=== PATIENT | male | born 1975 | race Caucasian/White ===

== ENCOUNTER 2018-04-26 07:35 | Emergency (ER) | payer MEDICAID, OTHER ==
[~2018-04-26] VITALS: Ht 172.7 cm; Wt 95.3 kg
[~2018-04-26 07:35] MED LIST: IBUP-1842; LISI-420 PO; ORE25 PO; UNK HTN MED
--- NOTE | 2018-04-26 07:37 | NUR ---
PT AMBULATES TO BED 10
--- NOTE | 2018-04-26 07:39 | NUR ---
PATIENT PRESENTS TO ED WITH DIZZINESS, UNABLE TO AMBULATE RIGHT SIDED NUMBNESS RIGHT SIDED FACIAL ASYMMETRY DYSARTHRIA . DENIES INJURY/TRAUMA---NUMBNESS STARTED LAST NIGHT AND TODAY AT 2AM WITH FACIAL ASYMMETRY AND UNABLE TO COMMUNICATE] . DENIES N/V/D; SKIN IS PINK/WARM/DRY; AAOX4 UNABLE TO AMBULATE; LUNGS CLEAR BL; HR EVEN AND SLIGHTLY TACHYCARDIA; PT DENIES ANY FEVER, CP, SOB, OR COUGH AT THIS TIME; PATIENT STATES PAIN OF 0/10 AT THIS TIME; VSS; PATIENT POSITIONED FOR COMFORT; HOB ELEVATED; BEDRAILS UP X2; BED DOWN. ER MD MADE AWARE OF PT STATUS.
--- NOTE | 2018-04-26 07:39 | NUR ---
AT BEDSIDE--CODE BRAIN INITIATED
--- NOTE | 2018-04-26 07:42 | NUR ---
code brain initiated.
[2018-04-26 07:43] VITALS: BP 240/150
--- NOTE | 2018-04-26 07:44 | NUR ---
patient to ct. scan mpnitored with nurse code brain. o2 2lnc
--- NOTE | 2018-04-26 07:44 | NUR ---
PT TAKEN TO CT IN [place]
[2018-04-26] MEDS ORDERED: LABETALOL 100 MG/20 ML VIAL IVP ONE (07:50)
--- NOTE | 2018-04-26 07:54 | NUR ---
PT RETURNED FROM CT
--- NOTE | 2018-04-26 08:04 | NUR ---
XRAY AT BEDSIDE
[2018-04-26 08:10] LABS: BASOPHILS # (AUTO) 0.1 K/uL (0.00-0.22); BASOPHILS % (AUTO) 0.8 % (0.0-2.0); EOSINOPHILS # (AUTO) 0.1 K/uL (0-0.4); EOSINOPHILS % (AUTO) 1.6 % (0.0-4.0); HEMATOCRIT 47.3 % (36-52); HEMOGLOBIN 15.8 g/dL (12.0-18.0); LYMPHOCYTES # (AUTO) 1.8 K/uL (2.0-11.5); LYMPHOCYTES % (AUTO) 22.2 % (20.5-51.1); MEAN CORPUSCULAR HEMOGLOBIN 28 pg (27-31); MEAN CORPUSCULAR HGB CONC 34 g/dL (33-37); MONOCYTES # (AUTO) 0.6 K/uL (0.8-1.0); MONOCYTES % (AUTO) 6.7 % (1.7-9.3); NEUTROPHILS # (AUTO) 5.7 K/uL (1.8-7.7); NEUTROPHILS % (AUTO) 68.7 % (42.2-75.2); PLATELET COUNT (AUTO) 226 K/uL (140-450); RED BLOOD CELL COUNT(AUTO) 5.63 MIL/uL (4.20-6.10); RED CELL DISTRIBUTION WIDTH 14.6 % (11.6-13.7); WHITE BLOOD COUNT (AUTO) 8.3 K/uL (4.8-10.8)
[2018-04-26 08:17] LABS: PROTHROMBIN TIME 10.5 secs (10.8-13.4)
[2018-04-26 08:20] LABS: ANION GAP 11.8 (8-16); TOTAL BILIRUBIN 0.4 mg/dL (0.0-1.0)
[2018-04-26 08:23] LABS: POTASSIUM 2.8 mmol/L (3.5-5.1)
--- NOTE | 2018-04-26 09:12 | NUR ---
PT REPORT GIVEN TO WOODEN BARREL MECHANICROBLES JOHN AT [place], WILL CALL BACK FOR ETA
[2018-04-26] MEDS ORDERED: POTASSIUM CHL IV ONE (09:31)
[2018-04-26] MEDS ORDERED: 1/2 NS IV ONE (09:31)
[2018-04-26] MEDS: POTASSIUM CHLORIDE 10 MEQ in NACL 0.9% 100 ML IV SCH ×2 (09:39→09:40)
--- NOTE | 2018-04-26 09:44 | NUR ---
AAO PT WITH AT BEDSIDE ANSWER ALL QUESTION APROPIATELY AT THIS TIME, NO C/O HEADACHE, NAUSEA, DIZZINESS, OR PAIN AT THIS TIME, 10 MEQ POTASIUM GIVEN VIA IV, BP 195/131, HR 79, RR 20, SPO2 97% ON 2LPM VIA N/CA, AWAITING FOR [facility] FOR TRANSFER [place] [facility] [place], TRANSFER FORM SIGNED BY THE PT ON NON-DOMINANT LT HAND WITH RT SIDED WEAKNESS AND RT FACIAL DROOP, WILL CONTINUE TO MONITOR
--- NOTE | 2018-04-26 10:24 | NUR ---
[facility] TRANSPORT ARRIVES FOR PT TO [facility]
[2018-04-26 10:28] LABS: BARBITURATE, URINE NEG. ng/ml (NEG <=200); BENZODIAZEPINE, URINE NEG. ng/mL (NEG <=200); CANNABINOID, URINE NEG. ng/mL (NEG <=50); COCAINE, URINE NEG. ng/mL (NEG <=300); OPIATE, URINE NEG. ng/mL (NEG <=2000); PHENCYCLIDINE SCREEN,URINE NEG. ng/mL (NEG <=25)
[2018-04-26 10:29] LABS: APPEARANCE,URINE CLEAR (CLEAR); BILIRUBIN,URINE NEGATIVE (NEGATIVE); BLOOD, URINE NEGATIVE (NEGATIVE); COLOR,URINE YELLOW (YELLOW); LEUKOCYTE ESTERASE ,URINE NEGATIVE (NEGATIVE); NITRITE, URINE NEGATIVE (NEGATIVE); UGLUCOSE NEGATIVE (NEGATIVE)
--- NOTE | 2018-04-26 10:34 | NUR ---
PT LEAVING WITH [facility] TO [facility]
[2018-04-26 10:36] VITALS: BP 178/116
--- NOTE | 2018-04-26 10:36 | NUR ---
Patient to be transferred to [facility]. Is being transferred due to need of higher level of care. Receiving facility has accepting physician and available space. ER physician has signed transfer form. Patient or responsible libertarian has agreed to transfer and signed form. Patient belongings inventoried and will be sent with patient. Copy of nursing notes, lab reports, EKG, Physicians Orders and X-rays to be sent with patient. Report called to ROBLES Rios at receiving facility. [facility] ambulance service tranported the pt via gurney. ETA is 15 min to recieving facility. ROBLES Rios notified at recieving facility. Report given to paramedics Ayaan.
[2018-04-26 10:47] LABS: RBC,URINE NONE SEEN /HPF (0-5); WBC,URINE NONE SEEN /HPF (0-5)
== END 2018-04-26 10:36 | disposition short-term general hospital (02) ==
LOC: MED 07:35
DX: I63.8 Other cerebral infarction (principal); I10 Essential (primary) hypertension; Z79.899 Other long term (current) drug therapy
CPT/HCPCS: 36415; 70450; 71045; 80053; 80305; 81001; 82948; 83036; 83735; 84484; 85025; 85610; 85730; 86886; 86900; 86901; 93005; 96361; 96374; 99291; J3480; J3490; J7030; Q0092

== ENCOUNTER 2021-04-16 10:55 | Emergency (ER) | payer MEDICAID, OTHER ==
[~2021-04-16] VITALS: Ht 170.2 cm; Wt 83.5 kg
[~2021-04-16 10:55] MED LIST changes: -LISI-420 PO; +LISI-487 PO
[2021-04-16 10:58] VITALS: BP 206/122
--- NOTE | 2021-04-16 11:05 | NUR ---
PT AMBULATED TO BED 11
[2021-04-16] MEDS ORDERED: ENALAPRILAT 2.5 MG/2 ML VIAL IVP ONE (11:15)
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
[2021-04-16 11:42] LABS: BASOPHILS # (AUTO) 0.1 K/uL (0.00-0.22); BASOPHILS % (AUTO) 0.9 % (0.0-2.0); EOSINOPHILS # (AUTO) 0.2 K/uL (0-0.4); EOSINOPHILS % (AUTO) 2.3 % (0.0-4.0); HEMATOCRIT 43.8 % (36-52); HEMOGLOBIN 14.8 g/dL (12.0-18.0); LYMPHOCYTES # (AUTO) 1.9 K/uL (2.0-11.5); LYMPHOCYTES % (AUTO) 22.9 % (20.5-51.1); MEAN CORPUSCULAR HEMOGLOBIN 29 pg (27-31); MEAN CORPUSCULAR HGB CONC 34 g/dL (33-37); MEAN CORPUSCULAR VOLUME 85.7 fL (80-94); MONOCYTES # (AUTO) 0.7 K/uL (0.8-1.0); MONOCYTES % (AUTO) 8.4 % (1.7-9.3); NEUTROPHILS # (AUTO) 5.6 K/uL (1.8-7.7); NEUTROPHILS % (AUTO) 65.5 % (42.2-75.2); PLATELET COUNT (AUTO) 230 K/uL (140-450); RED BLOOD CELL COUNT(AUTO) 5.12 MIL/uL (4.20-6.10); RED CELL DISTRIBUTION WIDTH 13.9 % (11.6-13.7); WHITE BLOOD COUNT (AUTO) 8.5 K/uL (4.8-10.8)
[2021-04-16 11:56] LABS: ALBUMIN 3.8 g/dL (3.4-5.0); ANION GAP 8.7 (8-16); CARBON DIOXIDE 28.2 mmol/L (21-32); TOTAL BILIRUBIN 0.3 mg/dL (0.0-1.0)
[2021-04-16 12:01] LABS: POTASSIUM 2.9 mmol/L (3.5-5.1)
[2021-04-16] MEDS ORDERED: POTASSIUM CHLORIDE 10 MEQ TABER PO ONE (12:05)
--- NOTE | 2021-04-16 12:30 | NUR ---
PT ALERT AND AWAKE, BREATHING EVEN AND UNLABORED. NO DISTRESS NOTED. ALL NEEDS MET AT THIS TIME
--- NOTE | 2021-04-16 12:48 | NUR ---
Dr. Burton is evaluating the patient at bedside.
[2021-04-16 13:20] VITALS: BP 183/115
--- NOTE | 2021-04-16 13:21 | NUR ---
Patient discharged with v/s stable. Written and verbal after care instructions about hypokalemia, hypertension given and explained. Patient verbalized understanding. Ambulatory with steady gait. All questions addressed prior to discharge. Advised to follow up with PMD.
== END 2021-04-16 13:21 | disposition home or self-care (01) ==
LOC: MED 10:55
DX: I10 Essential (primary) hypertension (principal); Z86.73 Personal history of transient ischemic attack (TIA), and cerebral infarction without residual deficits; Z79.899 Other long term (current) drug therapy; Z98.890 Other specified postprocedural states
CPT/HCPCS: 36415; 71045; 80053; 84484; 85025; 93005; 96374; 99285; J3490

== ENCOUNTER 2021-05-18 08:10 | Emergency (ER) | payer OTHER ==
[~2021-05-18] VITALS: Ht 170.2 cm; Wt 87.5 kg
[2021-05-18 08:28] VITALS: BP 179/113
--- NOTE | 2021-05-18 08:33 | NUR ---
PT AMBULATED WITH EVEN AND STEADY GAIT TO BED 6
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
[2021-05-18 09:45] VITALS: BP 179/113
--- NOTE | 2021-05-18 09:46 | NUR ---
Patient discharged with v/s stable. Written and verbal after care instructions about carpal tunnel syndrome given and explained. Patient verbalized understanding. Ambulatory with steady gait. All questions addressed prior to discharge. Advised to follow up with PMD.
== END 2021-05-18 09:46 | disposition home or self-care (01) ==
LOC: MED 08:10
DX: R20.0 Anesthesia of skin (principal); G56.02 Carpal tunnel syndrome, left upper limb
CPT/HCPCS: 99281

== ENCOUNTER 2022-05-06 14:43 | Emergency (ER) | payer OTHER ==
[~2022-05-06] VITALS: Ht 170.2 cm; Wt 81.6 kg
[2022-05-06 14:56] VITALS: BP 151/92
[2022-05-06] MEDS ORDERED: LID5T TP (18:41)
[2022-05-06] MEDS ORDERED: ACET-8386 PO (18:41)
[2022-05-06] MEDS ORDERED: IBUP-2213 PO (18:41)
[2022-05-06] MEDS ORDERED: HYDROcodone/APAP 5/325 MG 1 TAB TAB ONE (18:47)
[2022-05-06] MEDS ORDERED: KETOROLAC 30 MG/ML VIAL ONE (18:47)
[2022-05-06] MEDS: HYDROcodone/APAP 5/325 MG 1 TAB TAB PO ONE (18:52)
[2022-05-06] MEDS: KETOROLAC 30 MG/ML VIAL IM ONE (18:52)
--- NOTE | 2022-05-06 19:04 | NUR ---
Patient discharged with v/s stable. Written and verbal after care instructions given and explained. Patient alert, oriented and verbalized understanding of instructions. Wheel Chair Assisted with to car. All questions addressed prior to discharge. ID band removed. Patient advised to follow up with PMD. Rx of IBUPROFEN, NORCO 5/325, LIDODERM PATCH given. Patient educated on indication of medication including possible reaction and side effects. Opportunity to ask questions provided and answered.
== END 2022-05-06 18:57 | disposition home or self-care (01) ==
LOC: MED 14:43
DX: S39.012A Strain of muscle, fascia and tendon of lower back, initial encounter (principal); I10 Essential (primary) hypertension; Z86.73 Personal history of transient ischemic attack (TIA), and cerebral infarction without residual deficits; Z79.899 Other long term (current) drug therapy; X58.XXXA Exposure to other specified factors, initial encounter; Y93.89 Activity, other specified; Y92.89 Other specified places as the place of occurrence of the external cause; Y99.8 Other external cause status
CPT/HCPCS: 72100; 81002; 96372; 99283; J1885

== ENCOUNTER 2023-09-16 12:16 | Emergency (ER) | payer MEDICAID, OTHER ==
[~2023-09-16] VITALS: Ht 170.2 cm; Wt 83.5 kg
[~2023-09-16 12:16] MED LIST changes: +ACET-8905 PO; +IBUP-2213 PO; +LID5T TP
[2023-09-16 13:11] VITALS: BP 151/97; PULSE 84; RESP 20; TEMP 98.7; O2SAT 98
[2023-09-16 14:28] LABS: BASOPHILS % (AUTO) 0.2 % (0.0-2.0); EOSINOPHILS # (AUTO) 0.3 K/uL (0-0.4); EOSINOPHILS % (AUTO) 2.9 % (0.0-4.0); HEMATOCRIT 44.1 % (36-52); HEMOGLOBIN 14.8 g/dL (12.0-18.0); LYMPHOCYTES # (AUTO) 2.5 K/uL (2.0-11.5); LYMPHOCYTES % (AUTO) 24.1 % (20.5-51.1); MEAN CORPUSCULAR HEMOGLOBIN 28 pg (27-31); MEAN CORPUSCULAR HGB CONC 34 g/dL (33-37); MEAN CORPUSCULAR VOLUME 84.3 fL (80-94); MONOCYTES # (AUTO) 0.9 K/uL (0.8-1.0); MONOCYTES % (AUTO) 8.5 % (1.7-9.3); NEUTROPHILS # (AUTO) 6.5 K/uL (1.8-7.7); NEUTROPHILS % (AUTO) 64.3 % (42.2-75.2); PLATELET COUNT (AUTO) 259 K/uL (140-450); RED BLOOD CELL COUNT(AUTO) 5.23 MIL/uL (4.20-6.10); WHITE BLOOD COUNT (AUTO) 10.2 K/uL (4.8-10.8)
[2023-09-16 15:42] LABS: ALBUMIN 3.8 g/dL (3.4-5.0); ANION GAP 12.9 (8-16); CALCIUM 9.6 mg/dL (8.5-10.1); CARBON DIOXIDE 28.2 mmol/L (21-32); POTASSIUM 3.1 mmol/L (3.5-5.1); TOTAL BILIRUBIN 0.3 mg/dL (0.0-1.0); TOTAL PROTEIN, SERUM 7.7 g/dL (6.4-8.2)
[2023-09-16 17:15] LABS: BILIRUBIN,URINE NEGATIVE (NEGATIVE); BLOOD, URINE 3+ (NEGATIVE); COLOR,URINE YELLOW (YELLOW); LEUKOCYTE ESTERASE ,URINE NEGATIVE (NEGATIVE); NITRITE, URINE NEGATIVE (NEGATIVE); PH,URINE 6.5 (5.0-9.0); PROTEIN,URINE NEGATIVE (NEGATIVE); UGLUCOSE NEGATIVE (NEGATIVE); UROBILINOGEN,URINE 0.2 EU/dL (0.2 - 1)
[2023-09-16 17:18] LABS: APPEARANCE,URINE HAZY (CLEAR)
[2023-09-16 17:31] LABS: BACTERIA,URINE FEW /HPF (None Seen); RBC,URINE 20-50 /HPF (0-5); WBC,URINE 0-5 /HPF (0-5)
[2023-09-16 17:32] LABS: SQUAMOUS EPITHELIAL CELL,UR 0-3 (FEW) /LPF (0-3 (FEW))
[2023-09-16] MEDS ORDERED: AMOX1TAB8 PO (18:33)
[2023-09-16] MEDS ORDERED: DOXY-690 PO (18:33)
[2023-09-16 19:06] VITALS: BP 121/86; PULSE 76; RESP 20; TEMP 98.1; O2SAT 99
== END 2023-09-16 19:00 | disposition home or self-care (01) ==
LOC: MED 12:16
DX: L03.311 Cellulitis of abdominal wall (principal); K57.32 Diverticulitis of large intestine without perforation or abscess without bleeding; I10 Essential (primary) hypertension; E11.9 Type 2 diabetes mellitus without complications; Z86.73 Personal history of transient ischemic attack (TIA), and cerebral infarction without residual deficits; Z79.899 Other long term (current) drug therapy; Z79.2 Long term (current) use of antibiotics; Z79.1 Long term (current) use of non-steroidal anti-inflammatories (NSAID)
CPT/HCPCS: 36415; 74177; 80053; 81001; 83690; 85025; 99285; Q9967